=== PATIENT | male | born 1995 | race Caucasian/White ===

== ENCOUNTER 2025-04-01 14:33 | Emergency (ER) | payer OTHER, SELFPAY ==
[2025-04-01 14:43] VITALS: BP 108/74; PULSE 87; RESP 16; TEMP 37.2; O2SAT 96
--- NOTE | 2025-04-01 14:47 | ED.SKABFB ---
HPI - Skin/Abscess/Foreign Bdy General Chief complaint: Skin/Abscess/Foreign Body Stated complaint: bump on right forearm Time Seen by Provider: 04/01/25 14:47 Source: patient Mode of arrival: ambulatory Limitations: no limitations History of Present Illness HPI narrative: 30 yo M presents with abscess to R forearm for 4 to 5 days. Attempted to open abscess himself with razor blade. Thought infection was initially a bug bite. CMS intact. All systems reviewed and negative except as noted above. Related Data Allergies Allergy/AdvReac Type Severity Reaction Status Date / Time NKDA Allergy Unknown Unknown Uncoded 04/01/25 14:44 Review of Systems Review of Systems: CONSTITUTIONAL: Denies fever, chills, or sweats. EYES: Denies visual changes, redness, or discharge. ENT: Denies rhinorrhea, congestion, sore throat, or otalgia. CARDIOVASCULAR: Denies chest pain, palpitations, or edema. RESPIRATORY: Denies cough or dyspnea. GASTROINTESTINAL: Denies abdominal pain, nausea, vomiting, or diarrhea. GENITOURINARY: Denies dysuria or hematuria. SKIN: Denies rash or itching. Reports abscess to right forearm MUSCULOSKELETAL: Denies back pain, joint pain, or myalgia. NEUROLOGIC: Denies headache, numbness, or weakness. PSYCHIATRIC: Denies anxiety or depression. All other systems reviewed are negative, except as documented in HPI. PMFSH Comments At time of signature, agree with nursing past medical, surgical, social and family history. There is no relevant family history pertinent to the presenting complaint. Exam Narrative: GENERAL: This is a well-nourished, well-developed patient, in no apparent distress. HEAD: normocephalic, atraumatic. EYES: PERRL. Sclera clear/white. Vision is grossly intact. EARS: External ears normal NOSE: External nose normal NECK: Neck supple, non-tender without lymphadenopathy, masses or thyromegaly. CARDIOVASCULAR: Regular rate and rhythm without murmurs, gallops, or rubs. RESPIRATORY: Clear to auscultation. Breath sounds equal bilaterally. No wheezes, rales, or rhonchi. SKIN: warm, Dry, intact with no suspicious lesions or rash, good texture and turgor. abscess to posterior, medial aspect R mid forearm approx. 6cm diameter. fluctuant. scant purulent drainage noted NEURO: awake, alert, and oriented to person, place and time. There were no obvious focal neurologic abnormalities. EXTREMITIES: No joint tenderness, effusion, or edema noted. Course Course Level of Care: Express Care Visit Vital Signs Vital signs: Vital Signs Temperature 37.2 C 04/01/25 14:43 Pulse Rate 87 04/01/25 14:43 Respiratory Rate 16 04/01/25 14:43 Blood Pressure 108/74 04/01/25 14:43 Pulse Oximetry 96 04/01/25 14:43 Oxygen Delivery Room Air 04/01/25 14:43 Temperature 37.2 C 04/01/25 14:43 Pulse Rate 87 04/01/25 14:43 Respiratory Rate 16 04/01/25 14:43 Blood Pressure 108/74 04/01/25 14:43 Pulse Oximetry 96 04/01/25 14:43 Oxygen Delivery Room Air 04/01/25 14:43 reviewed Procedures Abscess I/D upper extremity: Date of Incision: 04/01/25 Time of Incision: 15:00 Side (if applicable): right Sedation/analgesia: none Local Anesthetic: lidocaine 2% Amount of anesthesia used (mL): 4 Technique: incised with #11 blade Irrigation: Yes Packing used?: none I&D Results: Pus and Blood Complications: pain MDM - Skin/Abscess/Foreign Bdy MDM Narrative Medical decision making narrative: will treat abscess to right forearm with clindamycin. Patient is well-appearing, nontoxic. CMS intact pre and postprocedure Discharge Plan Discharge Clinical Impression: Abscess of forearm, right Patient Disposition: Home Condition: Stable Instructions: Antibiotic Form, Abscess Incision and Drainage (DC) Additional Instructions: Take antibiotic as prescribed until gone. Take pain medication as prescribed. This medication may make you drowsy, do not drive while taking it. Elevate when at rest. See your doctor if not improving. Patient Language: [place] Prescriptions: New clindamycin HCl 300 mg capsule 300 mg PO QID 10 Days Qty: 40 0RF hydrocodone-acetaminophen 5-325 mg tablet 1 tablet PO Q8H PRN (Reason: pain) Qty: 8 0RF Follow-up/Referrals: Rayo,Alex Romero MD [Primary Care Provider] - Time of Disposition: 15:07
[2025-04-01] MEDS: LIDOCAINE 2% LOCAL INJ 20 ML VIAL 4 ML INFILTRATE (14:54)
== END 2025-04-01 15:14 | disposition home or self-care (01) ==
PROVIDERS: Emergency Provider Nurse Practitioner Family; PCP Family Medicine
DX: L02.413 Cutaneous abscess of right upper limb (principal)
CPT/HCPCS: 10060; 99213; G0463; J2003